=== PATIENT | female | born 1945 | race Caucasian/White ===

== ENCOUNTER 2020-12-28 15:11 | Inpatient (IN) ==
[2020-12-28] MEDS ORDERED: SODIUM CHLORIDE 0.9% 1000ML 1,000 ML IV ONE (15:46)
[2020-12-28] MEDS ORDERED: FAMOTIDINE 20MG IV PUSH 20 MG/5 ML SYR IV STA (15:48)
[2020-12-28] MEDS ORDERED: ACETAMINOPHEN 1,000 MG/100 ML VIAL IV STA (15:48)
[2020-12-28] MEDS ORDERED: ONDANSETRON INJ 2 MG/ML 2 ML VIAL IV STA (15:49)
[2020-12-28] MEDS ORDERED: guaiFENesin 600 MG TABCR PO STA (15:49)
[2020-12-28] MEDS ORDERED: ALBUT/IPRATROP 3MG/0.5MG NEB 3 ML VIAL NEB STA (15:49)
[2020-12-28] MEDS ORDERED: SODIUM CHLORIDE 0.65% NA SOLN 45 ML (OCEAN) ONE (15:52)
[2020-12-28] MEDS ORDERED: dexAMETHasone**PF** 10 MG/ML VIAL IV ONE (15:52)
[2020-12-28] MEDS ORDERED: cefTRIAXone SODIUM 2,000 MG/70 ML BAG IV STA (15:53)
[2020-12-28 16:49] LABS: Alanine Aminotransferase 75 U/L (12-78); Albumin Level 3.3 gm/dl (3.4-5.0); Aspartate Aminotransferase 109 U/L (15-37); BUN Creatinine Ratio 21.1 (10-20); Blood Urea Nitrogen 14 mg/dl (7-18); Calcium 8.6 mg/dl (8.5-10.1); Carbon Dioxide 24 mmol/L (21-32); Chloride 101 mmol/L (98-107); Est GFR (African American) 101.4 ml/min; Est GFR (Non-African American) 87.5 ml/min; Glucose 119 mg/dl (70-99); Lipase 150 U/L (73-393); Potassium 3.1 mmol/L (3.5-5.1); Sodium 134 mmol/L (136-145)
[2020-12-28 16:52] LABS: Albumin Globulin Ratio 0.9 (0.9-2); Alkaline Phosphatase 151 U/L (45-117); Bilirubin Direct 0.4 mg/dl (0-0.2); Bilirubin,Total 0.7 mg/dl (0.2-1); Globulin 3.6 gm/dl (2.5-4.0); Phosphorus 1.8 mg/dl (2.5-4.9); Total Protein 6.9 gm/dl (6.4-8.2); Troponin I < 0.015 ng/ml (0-0.045)
--- NOTE | 2020-12-28 16:52 | XRay Report ---
XR chest 1V portable CLINICAL HISTORY: Atypical chest pain COMPARISON STUDY: No previous studies for comparison. FINDINGS: The cardiac and mediastinal contours are normal. There is no evidence of focal pulmonary co nsolidation. There is no evidence of failure. No pleural effusions are visualized.[ IMPRESSION: No active disease in the chest. ACT 112: Negative or not required by law. Electronically signed by: Peter Mercado M.D. 12/28/2020 4:51 PM
[2020-12-28] MEDS ORDERED: POTASSIUM PHOS 3 MMOL/1 ML INFUSION IV STA (16:59)
[2020-12-28 17:00] LABS: Hematocrit (blood only) 37.8 % (37-47); Hemoglobin 12.9 g/dL (12.0-16.0); Mean Corpuscular Hemoglobin 30.3 pg (25-34); Mean Corpuscular Hgb Conc 34.1 g/dL (32-36); Mean Corpuscular Volume 88.7 fL (80-100); RDW Coefficient of Variation 13.7 % (11.5-14.5); RDW Standard Deviation 44.8 fL (36.4-46.3); Red Blood Count 4.26 M/uL (4.2-5.4); White Blood Count 1.68 K/uL (4.8-10.8)
[2020-12-28 17:06] LABS: INR 1.1 (0.9-1.1); Partial Thromboplastin Ratio 1.3; Partial Thromboplastin Time 34.5 Seconds (21.0-31.0); Prothrombin Time 10.7 Seconds (9.0-12.0)
[2020-12-28] MEDS ORDERED: OPTIRAY 320 100ml IV ONE (17:11)
[2020-12-28] MEDS ORDERED: POTASSIUM PHOSPHATE 6 MMOL in 0.9 % SODIUM CHLORIDE 100 ML IV ONE (17:15)
--- NOTE | 2020-12-28 17:30 | Emergency Department Note ---
Impression & Plan Anaplasmosis, Fever, Thrombocytopenia, Lymphopenia, Hypophosphatemia, Transaminitis, Hypokalemia ED Provider Note NAME: ALEXYS JUAN AGE: 75 SEX: F ARRIVES VIA: Walk-In INFORMANT: Patient, ED PROVIDER(S): Abel Hernandez MD CHIEF COMPLAINT: Cough, fevers, nausea, vomiting, diarrhea. PLAN: Disposition: Admit MEDICAL DECISION MAKING: The patient is a pleasant 75-year-old woman with a past medical history of asthma who presents to the emergency department with fevers that have been ongoing for the past several days despite being on azithromycin prescribed by her PCP in setting of having cough, congestion and body aches ongoing for the past week. She denies any chest pain shortness of breath. She does report nausea, vomiting and diarrhea. Reports having had both series of her Covid vaccine several months ago. She denies any known COVID-19 exposures. On arrival the patient is uncomfortable but no acute distress, febrile to 39.1, heart rate in the 110s and vital signs otherwise stable. She appears clinically dry. She has scant intermittent wheeze and is otherwise clear. Abdomen is mildly distended but soft, and nontender. EKG without overt acute ischemia. Chest x-ray negative for acute cardiopulmonary process. WBC 1.6 with lymphopenia to 0.36. Platelets decreased to 33K. H/H within normal limits. Chemistry without metabolic acidosis. Potassium 3.1 and phosphorus 1.8 with repletion initiated. BUN/creatinine> 20 consistent with patient's clinically dry appearance. Lactic acid 1.5. LFTs are elevated with AST 109. Troponin negative/undetectable. Lipase is not elevated. COVID-19 PCR was negative. Of note, we were contacted by the lab regarding suspicion for anaplasmosis on CBC/smear. Formal Anaplasma smear was ordered and did show "Intracytoplasmic neutrophilic inclusions noted." Pathology consult to follow. CT abdomen pelvis did not demonstrate acute process however note is made of mul tiple cystic hepatic lesions with the largest measuring 13 cm with associated mass-effect. Upon reevaluation the patient did report some improvement with resolution of her cough but still feeling somewhat nauseated. I did review her results with her and her at the bedside. Given she is still uncomfortable and somewhat symptomatic she was in agreement with plan for admission for further management. Patient was initially treated with empiric ceftriaxone to broaden antibiotic coverage given her fever and tachycardia while on azithromycin. However given full smear consistent with anaplasmosis IV doxycycline ordered. Case was discussed with Valery Argueta with Dr. [facility] who will evaluate the patient for admission. Triage Nursing notes reviewed and agree them. Prior medical records reviewed Vital Signs: reviewed and remarkable for fever, tachycardia. Differential diagnosis: Viral syndrome, otitis, pharyngitis, pneumonia, influenza, meningitis, urinary tract infection, sepsis, bacteremia, as well as other pathologies. ER treatment provided: See below. Diagnostics interpreted by me: ECG: Sinus tachycardia, 103 bpm, no ectopy, nonspecific T wave abnormality, no overt ST elevation or depression, QTC 413, QRS 94. Cardiac Monitoring: An order for continuous cardiac monitoring was placed and demonstrated sinus tachycardia, 103 bpm, no ectopy. Laboratory studies: See below Imaging studies: See below Consultation(s): Valery Argueta with Dr. Chidi rodrigues who will evaluate the patient for admission. HPI: The patient is a pleasant 75-year-old woman with a past medical history of asthma who presents to the emergency department with fevers that have been ongoing for the past several days despite being on azithromycin prescribed by her PCP in setting of having cough, congestion and body aches ongoing for the past week. She denies any chest pain shortness of breath. She does report nausea, vomiting and diarrhea. Reports having had both series of her Covid vaccine several months ago. She denies any known COVID-19 exposures. ROS: See above HPI for pertinent positives & negatives. A total of 10 systems reviewed and were otherwise negative. PAST MEDICAL HISTORY:See Below PAST SURGICAL HISTORY:See Below FAMILY HISTORY:See Below SOCIAL HISTORY:See Below HOME MEDICATIONS:See Below ALLERGIES:See Below VITALS:See Below PHYSICAL EXAMINATION: GENERAL: Awake, alert, fatigued-appearing, in no distress HENT: Normocephalic, atraumatic. Oropharynx with dry mucous membranes and otherwise unremarkable. EYES: Normal conjunctiva. Sclera non-icteric. NECK: Supple. No nuchal rigidity. FROM. No JVD. RESPIRATORY: Scant intermittent wheeze and is otherwise clear. CARDIAC: Tachycardic rate, normal rhythm. Extremities warm and well perfused. Pulses equal. ABDOMEN: Mildly distended but soft. No tenderness to palpation. No rebound or guarding. No masses. RECTAL: Deferred. MUSCULOSKELETAL: Chest examination reveals no tenderness. The back is symmetrical on inspection without obvious abnormality. There is no CVA tenderness to palpation. No joint edema. LOWER EXTREMITIES: Calves are equal size bilaterally and non-tender. No edema. No discoloration. NEURO: Normal sensorium. No sensory or motor deficits noted. SKIN: No rash or jaundice noted. Abel Hernandez MD Past Med/Surg History Medical History Asthma Surgical History History of hysterectomy Family History Mother Colorectal cancer Father Heart disease Social History Smoking Status: Never smoker Hx Alcohol Use: No Hx Substance Use: No Preferred Language: Faroese Communication Ability: Effective Electromechanical Assembler Required: No Beliefs That Will Affect Care: None Current Living Situation: Spouse Feels Safe at Home: Yes Safety Concerns: Feels Safe At This Time Assistive Devices: Glasses Allergies Allergies Allergy/AdvReac Type Severity Reaction Status Date / Time No Known Allergies Allergy Unknown Verified 08/13/03 16:41 CAT GUT Allergy Mild Uncoded 08/03/03 15:33 Home Meds Home Medications Medication Instructions Recorded Confirmed albuterol sulfate 2 inh INHALATION QID PRN 12/28/20 12/28/20 azithromycin 250 mg PO DAILY 12/28/20 12/28/20 calcium carbonate-vitamin D3 2 tab PO DAILY 12/28/20 12/28/20 [Calcium + D] fluticasone propionate 2 spray INTRANASAL DAILY 12/28/20 12/28/20 fluticasone propionate [Flovent 2 inh INHALATION BID 12/28/20 12/28/20 HFA] Results & Data (ED) Vital Signs Vital Signs - 24 hr 12/28/20 15:16 12/28/20 16:28 12/28/20 16:30 Temperature 39.1 C H Temperature Source Temporal Artery Scan Pulse Rate 118 H Pulse Rate [Right Finger] 95 H Pulse Rhythm Regular Pulse Strength Normal Respiratory Rate 22 20 Respiratory Effort / Characteristics Non-Labored Spontaneous Respiratory Depth Normal Respiratory Pattern Regular Blood Pressure 109/75 Blood Pressure [Left Arm] Blood Pressure Mean 86 Blood Pressure Mean [Left Arm] Blood Pressure Position Sitting Pulse Oximetry 94 95 97 Oxygen Delivery Method Room Air Room Air Room Air Sepsis Recent Fever Within 48 Hours Yes Sepsis New/Unexplained Change in Mental Status No Sepsis Action Taken by Nursing Physician Notified 12/28/20 17:21 12/28/20 18:41 Temperature 36.9 C Temperature Source Oral Pulse Rate Pulse Rate [Right Finger] 89 Pulse Rhythm Pulse Strength Respiratory Rate 18 Respiratory Effort / Characteristics Respiratory Depth Respiratory Pattern Blood Pressure Blood Pressure [Left Arm] 120/61 Blood Pressure Mean Blood Pressure Mean [Left Arm] 80 Blood Pressure Position Pulse Oximetry 94 Oxygen Delivery Method Room Air Sepsis Recent Fever Within 48 Hours Sepsis New/Unexplained Change in Mental Status Sepsis Action Taken by Nursing Laboratory Data Attestation: I reviewed the patient's lab results. Result diagrams: 12/28/20 16:18 12/28/20 16:18 Lab Results 12/28/20 12/28/20 12/28/20 Range/Units 16:00 16:00 16:18 WBC 1.68 L (4.8-10.8) K/uL RBC 4.26 (4.2-5.4) M/uL Hgb 12.9 (12.0-16.0) g/dL Hct 37.8 (37-47) % MCV 88.7 (80-100) fL MCH 30.3 (25-34) pg MCHC 34.1 (32-36) g/dL RDW Std Deviation 44.8 (36.4-46.3) fL RDW Coeff of Inna 13.7 (11.5-14.5) % Plt Count 33 L (130-400) K/uL MPV 13.4 H (7.4-10.4) fL Immature Gran % (Auto) 0.6 % Neut % (Auto) 69.7 % Lymph % (Auto) 21.4 % Stanley % (Auto) 7.1 % Eos % (Auto) 0.6 % Baso % (Auto) 0.6 % Neut # (Auto) 1.17 L (1.4-6.5) K/uL Lymph # (Auto) 0.36 L (1.2-3.4) K/uL Stanley # (Auto) 0.12 (0.11-0.59) K/uL Eos # (Auto) 0.01 (0-0.5) K/uL Baso # (Auto) 0.01 (0-0.2) K/uL Immature Gran # (Auto) 0.01 (0.00-0.02) K/uL Toxic Vacuolation 1+ Dohle Bodies 1+ Platelet Estimate SIGNIFIC DECREASED (Normal) Giant Platelets 3+ PT (9.0-12.0) Seconds INR (0.9-1.1) APTT (21.0-31.0) Seconds PTT Ratio Sodium (136-145) mmol/L Potassium (3.5-5.1) mmol/L Chloride (98-107) mmol/L Carbon Dioxide (21-32) mmol/L Anion Gap (3-11) BUN (7-18) mg/dl Creatinine (0.6-1.2) mg/dl Est Cr Clr Drug Dosing Est GFR ( Amer) ml/min Est GFR (Non-Af Amer) ml/min BUN/Creatinine Ratio (10-20) Glucose (70-99) mg/dl Lactate (0.4-2.0) mmol/L Calcium (8.5-10.1) mg/dl Phosphorus (2.5-4.9) mg/dl Magnesium (1.8-2.4) mg/dl Total Bilirubin (0.2-1) mg/dl Direct Bilirubin (0-0.2) mg/dl AST (15-37) U/L ALT (12-78) U/L Alkaline Phosphatase (45-117) U/L Troponin I (0-0.045) ng/ml Total Protein (6.4-8.2) gm/dl Albumin (3.4-5.0) gm/dl Globulin (2.5-4.0) gm/dl Albumin/Globulin Ratio (0.9-2) Lipase (73-393) U/L Anaplasma Smear See Comment A COVID-19 Eval Order Covid19 at [facility] SARS-CoV-2 (PCR) NEGATIVE (Negative) 12/28/20 12/28/20 12/28/20 Range/Units 16:18 16:18 16:18 WBC (4.8-10.8) K/uL RBC (4.2-5.4) M/uL Hgb (12.0-16.0) g/dL Hct (37-47) % MCV (80-100) fL MCH (25-34) pg MCHC (32-36) g/dL RDW Std Deviation (36.4-46.3) fL RDW Coeff of Inna (11.5-14.5) % Plt Count (130-400) K/uL MPV (7.4-10.4) fL Immature Gran % (Auto) % Neut % (Auto) % Lymph % (Auto) % Stanley % (Auto) % Eos % (Auto) % Baso % (Auto) % Neut # (Auto) (1.4-6.5) K/uL Lymph # (Auto) (1.2-3.4) K/uL Stanley # (Auto) (0.11-0.59) K/uL Eos # (Auto) (0-0.5) K/uL Baso # (Auto) (0-0.2) K/uL Immature Gran # (Auto) (0.00-0.02) K/uL Toxic Vacuolation Dohle Bodies Platelet Estimate (Normal) Giant Platelets PT 10.7 (9.0-12.0) Seconds INR 1.1 (0.9-1.1) APTT 34.5 H (21.0-31.0) Seconds PTT Ratio 1.3 Sodium 134 L (136-145) mmol/L Potassium 3.1 L (3.5-5.1) mmol/L Chloride 101 (98-107) mmol/L Carbon Dioxide 24 (21-32) mmol/L Anion Gap 9.0 (3-11) BUN 14 (7-18) mg/dl Creatinine 0.65 (0.6-1.2) mg/dl Est Cr Clr Drug Dosing Not Reportable Est GFR ( Amer) 101.4 ml/min Est GFR (Non-Af Amer) 87.5 ml/min BUN/Creatinine Ratio 21.1 H (10-20) Glucose 119 H (70-99) mg/dl Lactate 1.5 (0.4-2.0) mmol/L Calcium 8.6 (8.5-10.1) mg/dl Phosphorus 1.8 L (2.5-4.9) mg/dl Magnesium 2.0 (1.8-2.4) mg/dl Total Bilirubin 0.7 (0.2-1) mg/dl Direct Bilirubin 0.4 H (0-0.2) mg/dl AST 109 H (15-37) U/L ALT 75 (12-78) U/L Alkaline Phosphatase 151 H (45-117) U/L Troponin I < 0.015 (0-0.045) ng/ml Total Protein 6.9 (6.4-8.2) gm/dl Albumin 3.3 L (3.4-5.0) gm/dl Globulin 3.6 (2.5-4.0) gm/dl Albumin/Globulin Ratio 0.9 (0.9-2) Lipase 150 (73-393) U/L Anaplasma Smear COVID-19 Eval Order SARS-CoV-2 (PCR) (Negative) Administered Medications Sodium Chloride (Nss 1000ml) 1,000 mls @ 125 mls/hr IV .Q8H JING Stop: 01/27/21 21:14 Last Admin: 12/28/20 21:23 Dose: 125 mls/hr Documented by: [id number] Discontinued Medications Albuterol (Albut/Ipratrop 3mg/0.5mg Neb 3 Ml Vial) 3 ml NEB NOW STA Stop: 12/28/20 15:50 Last Admin: 12/28/20 16:27 Dose: 3 ml Documented by: [id number] Dexamethasone Sodium Phosphate (DexamethasonePf 10 Mg/Ml Vial) 10 mg IV NOW ONE Stop: 12/28/20 15:53 Last Admin: 12/28/20 16:15 Dose: 10 mg Documented by: [id number] Guaifenesin (Guaifenesin 600 Mg Tabcr) 600 mg PO NOW STA Stop: 12/28/20 15:50 Last Admin: 12/28/20 16:14 Dose: 600 mg Documented by: [id number] Sodium Chloride (Nss 1000ml) 1,000 mls @ 999 mls/hr IV .Q1H1M ONE Stop: 12/28/20 16:46 Last Infusion: 12/28/20 17:16 Dose: 0 mls/hr Documented by: [id number] Admin: 12/28/20 16:13 Dose: 999 mls/hr Documented by: [id number] Acetaminophen (Ofirmev) 1,000 mg in 100 mls @ 400 mls/hr IV NOW STA Stop: 12/28/20 16:02 Last Infusion: 12/28/20 16:56 Dose: 0 mls/hr Documented by: [id number] Admin: 12/28/20 16:14 Dose: 400 mls/hr Documented by: [id number] Famotidine (Pepcid 20mg Iv Push) 20 mg in 5 mls @ 2.5 mls/min IV NOW STA Stop: 12/28/20 15:49 Last Admin: 12/28/20 16:15 Dose: 2.5 mls/min Documented by: [id number] Ceftriaxone Sodium (Rocephin) 2,000 mg in 70 mls @ 140 mls/hr IV NOW STA Stop: 12/28/20 16:22 Last Infusion: 12/28/20 16:56 Dose: 0 mls/hr Documented by: [id number] Admin: 12/28/20 16:26 Dose: 140 mls/hr Documented by: [id number] Potassium Phosphate 6 mmol/ (Sodium Chloride) 102 mls @ 102 mls/hr IV ONE ONE Stop: 12/28/20 18:14 Last Infusion: 12/28/20 19:23 Dose: 0 mls/hr Documented by: [id number] Admin: 12/28/20 17:18 Dose: 102 mls/hr Documented by: [id number] Doxycycline Hyclate 100 mg/ (Dextrose) 110 mls @ 50 mls/hr IV NOW STA Stop: 12/28/20 19:42 Last Infusion: 12/28/20 21:04 Dose: 0 mls/hr Documented by: [id number] Admin: 12/28/20 18:34 Dose: 50 mls/hr Documented by: [id number] Prochlorperazine (Compazine) 1 mls @ 1 mls/min IV ONE ONE Stop: 12/28/20 18:41 Last Admin: 12/28/20 18:54 Dose: 1 mls/min Documented by: [id number] Ioversol (Optiray 320 100ml) 94 ml IV ONCE ONE Stop: 12/28/20 17:12 Last Admin: 12/28/20 17:11 Dose: 94 ml Documented by: [id number] Ondansetron HCl (Ondansetron Inj 2 Mg/Ml 2 Ml Vial) 4 mg IV NOW STA Stop: 12/28/20 15:50 Last Admin: 12/28/20 16:14 Dose: 4 mg Documented by: [id number] Potassium Chloride (Potassium Chloride Crtab 20 Meq Tabcr) 40 meq PO NOW STA Stop: 12/28/20 21:04 Last Admin: 12/28/20 21:34 Dose: 40 meq Documented by: [id number] Sodium Chloride (Sodium Chloride 0.65% Na Soln 45 Ml ([place])) 2 sprays NA NOW O NE Stop: 12/28/20 15:53 Last Admin: 12/28/20 16:14 Dose: 2 sprays Documented by: [id number] Imaging Data Radiologist's Impression: Chest X-Ray 12/28/20 15:46 XR chest 1V portable CLINICAL HISTORY: Atypical chest pain COMPARISON STUDY: No previous studies for comparison. FINDINGS: The cardiac and mediastinal contours are normal. There is no evidence of focal pulmonary consolidation. There is no evidence of failure. No pleural effusions are visualized.[ IMPRESSION: No active disease in the chest. ACT 112: Negative or not required by law. Electronically signed by: Peter Mercado M.D. 12/28/2020 4:51 PM Abdomen/Pelvis CT 12/28/20 15:51 CT abd pelvis IV con only CLINICAL HISTORY: Fever, abdominal pain, nausea, vomiting, diarrhea. COMPARISON STUDY: None. TECHNIQUE: The patient was scanned in a dynamic helical fashion during intraven ous administration of 94 cc of Optiray 320 A dose lowering technique was utilized adhering to the principles of ALARA. CT DOSE: 282.84 mGy.cm FINDINGS: Lower chest: The heart is normal in size and configuration, without pericardial effusion. The lung bases and pleural spaces are clear. Liver: There is a 13.3 mm cystic lesion within the left hepatic lobe, there are additional scattered hepatic hypodensities likely representing cysts. There is left lobe of the area ductal dilatation. The hepatic and portal veins appear patent. There is displacement of the hepatic and portal vessels. Gallbladder: Unremarkable. Spleen: Top normal in size Pancreas: Unremarkable. Adrenal glands: Unremarkable. Kidneys: There is symmetric renal cortical enhancement. The kidneys are normal in size without hydronephrosis. Bowel: There are no transition zones to indicate bowel obstruction. There is extensive sigmoid diverticulosis. There is mild wall thickening likely secondary to peridiverticular inflammatory change. There is no convincing evidence of acute diverticulitis. The appendix is not visualized with certainty. There are scattered colonic air-fluid levels. Peritoneum: There is a small amount of free pelvic fluid. There is no free intraperitoneal air. Vasculature: The abdominal aorta is normal in course and caliber. Adenopathy: None. Pelvic viscera: The uterus appears surgically absent Skeletal structures: No destructive osseous lesions are seen. IMPRESSION: 1. No evidence of bowel obstruction. No evidence of free air. 2. Extensive sigmoid diverticulosis. There is no convincing evidence of acute diverticulitis. 3. Multiple cystic hepatic lesions including a 13 cm lesion within the left hepatic lobe. Mass effect from this lesion is felt to result in left hepatic lobe biliary ductal dilatation. In addition there is an unusual hepatic venous pattern, likely secondary to mass effect on the hepatic veins 4. Small amount of free pelvic fluid ACT 112: Negative or not required by law. Electronically signed by: Peter Mercado M.D. 12/28/2020 5:27 PM Discharge Plan Visit Data Chief Complaint: Weakness Stated Complaint: WEAK,CANT EAT,VOMITING.DIARRHEA ED Provider: Abel Hernandez Discharge Problem: Anaplasmosis, Fever, Thrombocytopenia, Lymphopenia, Hypophosphatemia, Transaminitis, Hypokalemia Patient Disposition: Admitted As Inpatient Discharge Instructions Interventions: ED Discharge Assessment Last Done: 12/28/20 20:08 Discharge Problem: Fever Qualifiers: Fever type: unspecified Qualified Code(s): R50.9 - Fever, unspecified
[2020-12-28] MEDS ORDERED: DOXYCYCLINE HYCLATE 100 MG in DEXTROSE 5% 100 ML IV STA (17:31)
[2020-12-28 17:41] LABS: Mean Platelet Volume 13.4 fL (7.4-10.4); Platelet Count 33 K/uL (130-400)
[2020-12-28 17:42] LABS: Basophils # (auto) 0.01 K/uL (0-0.2); Basophils % (auto) 0.6 %; Dohle Bodies 1+; Eosinophils # (auto) 0.01 K/uL (0-0.5); Eosinophils % (auto) 0.6 %; Giant Platelets 3+; Immature Granulocytes # (auto) 0.01 K/uL (0.00-0.02); Immature Granulocytes % (auto) 0.6 %; Lymphocytes # (auto) 0.36 K/uL (1.2-3.4); Lymphocytes % (auto) 21.4 %; Monocytes # (auto) 0.12 K/uL (0.11-0.59); Monocytes % (auto) 7.1 %; Neutrophils # (auto) 1.17 K/uL (1.4-6.5); Neutrophils % (auto) 69.7 %; Platelet Estimate SIGNIFIC DECREASED (Normal); Toxic Vacuolation 1+
[2020-12-28] MEDS ORDERED: PROCHLORPERAZINE 1 ML IV ONE (18:40)
--- NOTE | 2020-12-28 19:25 | History & Physical Report ---
Date of Service December 28, 2020 Assessment & Plan (1) Anaplasmosis: -Admit to [facility] -Patient presenting from home with reports of generalized weakness and illness -In the ED, Anaplasma smear positive -Labs consistent with Anaplasma infection w/ leukopenia, thrombocytopenia, elevated LFTs -Doxycycline, supportive care (2) Hepatic cyst: -CT ABD/pelvis shows multiple cystic hepatic lesions including a 13 cm lesion within the left hepatic lobe -Consider nonurgent GI consult if patient still hospitalized on Wednesday, otherwise outpatient follow-up (3) Hypokalemia: (4) Hypophosphatemia: -K+ 3.1, Phos 1.8 -Likely due to poor p.o. intake and GI loss with vomiting and diarrhea -Replace, follow electrolytes (5) Asthma: -No signs of acute exacerbation, continue home inhalers (6) DVT prophylaxis: -SCDs due to thrombocytopenia History of Present Illness Chief Complaint: Generalized weakness Primary Care Provider: Bryan Davis MD 75-year-old female with PMH asthma, and the problems listed below who presents to the ED for evaluation of generalized weakness and generally not feeling well. Patient reports that about 1 week ago, she developed URI type symptoms. She was placed on azithromycin by her PCP. Shortly after, patient reports she developed nausea and had one episode of vomiting and some diarrhea.. She has had a very poor appetite. She reports feeling generally weak. Has been running low-grade fevers of around 100 F. Patient reports being treated for Lyme disease 10/2020 with a 3-week course of doxycycline. She reports that since that time, she has removed 3 ticks from herself, last 1 being about 2 weeks ago. Patient reports she spends a lot of time outdoors and in the [place]. Patient denies abdominal pain. No chest pain or shortness of breath. Denies lightheadedness, dizziness, diaphoresis, syncopal events. No urinary symptoms. In the ED, patient tested positive for anaplasmosis. Labs show WBC 1.6K, platelet 33K, AST 109, alk phos 151. K+ 3.1, phosphorus 1.8. Patient was given IV Tylenol, nebulizer treatment, IV ceftriaxone, IV dexamethasone, IV doxycycline, IV famotidine, guaifenesin, IV Zofran, potassium phosphate replacement, IV prochlorperazine, IVF. Allergies Allergy/AdvReac Type Severity Reaction Status Date / Time No Known Allergies Allergy Unknown Verified 08/13/03 16:41 CAT GUT Allergy Mild Uncoded 08/03/03 15:33 Home Medications Medication Instructions Recorded Confirmed Type albuterol sulfate 2 inh INHALATION QID PRN 12/28/20 12/28/20 History azithromycin 250 mg PO DAILY 12/28/20 12/28/20 History calcium carbonate-vitamin D3 2 tab PO DAILY 12/28/20 12/28/20 History [Calcium + D] fluticasone propionate 2 spray INTRANASAL DAILY 12/28/20 12/28/20 History fluticasone propionate [Flovent 2 inh INHALATION BID 12/28/20 12/28/20 History HFA] Past Med/Surg History Medical History Asthma Surgical History History of hysterectomy Family History Mother Colorectal cancer Father Heart disease Social History Smoking Status: Never smoker Hx Alcohol Use: No Hx Substance Use: No Preferred Language: Estonian Communication Ability: Effective Dental Equipment Repairer Required: No Beliefs That Will Affect Care: None Current Living Situation: Spouse Feels Safe at Home: Yes Safety Concerns: Feels Safe At This Time Assistive Devices: Glasses Review of Systems Review of Systems: ROS per HPI, all other systems reviewed and negative Physical Exam Constitutional: WD/WN, vitals as above Eyes: PERRL, conjunctivae normal, anicteric sclerae ENMT: external ear and nose normal, oropharynx normal Respiratory: normal respiratory effort, lungs clear to auscultation Cardiovascular: Rate/Rhythm: regular rate and regular rhythm Vessels: normal peripheral pulses Extremities: no edema Gastrointestinal (Abdomen): normal bowel sounds, soft, nontender, no hepatosplenomegaly Musculoskeletal: no cyanosis or clubbing, extremities motor strength 5/5 Skin: no rashes, warm and dry Neurologic: PERRL, EOMI, accommodation nl, no face palsy, no dysarthria Psychiatric: A+Ox3, euthymic affect Results & Data Results & Data ([place]) Vital Signs (Past 12 Hours) Vital Signs Temp Pulse Pulse Resp BP BP Pulse Ox 12/28/20 18:41 36.9 C 12/28/20 17:21 89 18 120/61 94 12/28/20 16:30 97 12/28/20 16:28 95 H 20 95 12/28/20 15:16 39.1 C H 118 H 22 109/75 94 Laboratory Results Short CBC 12/28/20 Range/Units 16:18 WBC 1.68 L (4.8-10.8) K/uL Hgb 12.9 (12.0-16.0) g/dL Hct 37.8 (37-47) % Plt Count 33 L (130-400) K/uL BMP 12/28/20 16:18 Sodium 134 L Potassium 3.1 L Chloride 101 Carbon Dioxide 24 BUN 14 Creatinine 0.65 Glucose 119 H Calcium 8.6 Cardiac Enzymes 12/28/20 Range/Units 16:18 Troponin I < 0.015 (0-0.045) ng/ml Liver Function 12/28/20 Range/Units 16:18 Total Bilirubin 0.7 (0.2-1) mg/dl Direct Bilirubin 0.4 H (0-0.2) mg/dl AST 109 H (15-37) U/L ALT 75 (12-78) U/L Alkaline Phosphatase 151 H (45-117) U/L Albumin 3.3 L (3.4-5.0) gm/dl Diagnostic Findings Chest X-Ray 12/28/20 15:46 XR chest 1V portable CLINICAL HISTORY: Atypical chest pain COMPARISON STUDY: No previous studies for comparison. FINDINGS: The cardiac and mediastinal contours are normal. There is no evidence of focal pulmonary consolidation. There is no evidence of failure. No pleural effusions are visualized.[ IMPRESSION: No active disease in the chest. ACT 112: Negative or not required by law. Electronically signed by: Peter Mercado M.D. 12/28/2020 4:51 PM Abdomen/Pelvis CT 12/28/20 15:51 CT abd pelvis IV con only CLINICAL HISTORY: Fever, abdominal pain, nausea, vomiting, diarrhea. COMPARISON STUDY: None. TECHNIQUE: The patient was scanned in a dynamic helical fashion during intravenous administration of 94 cc of Optiray 320 A dose lowering technique was utilized adhering to the principles of ALARA. CT DOSE: 282.84 mGy.cm FINDINGS: Lower chest: The heart is normal in size and configuration, without pericardial effusion. The lung bases and pleural spaces are clear. Liver: There is a 13.3 mm cystic lesion within the left hepatic lobe, there are additional scattered hepatic hypodensities likely representing cysts. There is left lobe of the area ductal dilatation. The hepatic and portal veins appear patent. There is displacement of the hepatic and portal vessels. Gallbladder: Unremarkable. Spleen: Top normal in size Pancreas: Unremarkable. Adrenal glands: Unremarkable. Kidneys: There is symmetric renal cortical enhancement. The kidneys are normal in size without hydronephrosis. Bowel: There are no transition zones to indicate bowel obstruction. There is extensive sigmoid diverticulosis. There is mild wall thickening likely secondary to peridiverticular inflammatory change. There is no convincing evidence of acute diverticulitis. The appendix is not visualized with certainty. There are scattered colonic air-fluid levels. Peritoneum: There is a small amount of free pelvic fluid. There is no free intraperitoneal air. Vasculature: The abdominal aorta is normal in course and caliber. Adenopathy: None. Pelvic viscera: The uterus appears surgically absent Skeletal structures: No destructive osseous lesions are seen. IMPRESSION: 1. No evidence of bowel obstruction. No evidence of free air. 2. Extensive sigmoid diverticulosis. There is no convincing evidence of acute diverticulitis. 3. Multiple cystic hepatic lesions including a 13 cm lesion within the left hepatic lobe. Mass effect from this lesion is felt to result in left hepatic lobe biliary ductal dilatation. In addition there is an unusual hepatic venous pattern, likely secondary to mass effect on the hepatic veins 4. Small amount of free pelvic fluid ACT 112: Negative or not required by law. Electronically signed by: Peter Mercado M.D. 12/28/2020 5:27 PM Code Status & VTE Plan Code Status Patient is a full code as per my discussion with her. VTE Prophylaxis Plan VTE Prophylaxis will be ordered: Yes Supervising Physician Co-Signing Physician Notes Attending note : pt seen and examined , care co-ordinated with Anel SOLOMON 75 yo F admitted with fever , chills , poor PO intake hx of Tick bite positive for anaplasma started on PO doxy low K /Low phos : due to poor PO intake , N/V /diarrhea replaced monitor lytes incidental finding of hepatic cysts : out pt GI F/u please refer to further documentation by Anel Vásquez for discussion of other medical issues Joan Murillo MD
[2020-12-28] MEDS ORDERED: POTASSIUM CHLORIDE CRTAB 20 MEQ TABCR PO STA (21:03)
[2020-12-28] MEDS: SODIUM CHLORIDE 0.9% 1000ML 1,000 ML IV SCH (21:23)
[2020-12-28 23:29] LABS: Appearance Urine Clear (Clear); Bacteria Urine Automated Negative (Negative); Bilirubin Urine Negative (Negative); Blood Urine Negative (Negative); Color Urine Yellow; Glucose Urine UA Trace (Negative); Ketones Urine Negative (Negative); Leukocyte Esterase Urine Negative (Negative); Nitrite Urine Negative (Negative); Protein Urine 1+ (Negative); Specific Gravity Urine 1.029 (1.000-1.030); Urobilinogen Urine Negative (Negative); pH Urine 5.5 (4.5-7.5)
[2020-12-29] MEDS: SODIUM CHLORIDE 0.9% 1000ML 1,000 ML IV SCH ×2 (05:30→14:21)
[2020-12-29 07:21] LABS: Albumin Globulin Ratio 0.8 (0.9-2); Albumin Level 2.6 gm/dl (3.4-5.0); BUN Creatinine Ratio 22.8 (10-20); Bilirubin,Total 0.6 mg/dl (0.2-1); Calcium 7.7 mg/dl (8.5-10.1); Creatinine Clr Calc Pharmacy 77.5 ml/min; Est GFR (African American) 107.1 ml/min; Est GFR (Non-African American) 92.4 ml/min; Globulin 3.2 gm/dl (2.5-4.0); Phosphorus 1.8 mg/dl (2.5-4.9); Potassium 3.7 mmol/L (3.5-5.1); Total Protein 5.8 gm/dl (6.4-8.2)
--- NOTE | 2020-12-29 09:39 | Electrocardiogram Report ---
Test Reason : Blood Pressure : / mmHG Vent. Rate : 103 BPM Atrial Rate : 103 BPM P-R Int : 170 ms QRS Dur : 094 ms QT Int : 316 ms P-R-T Axes : 051 082 030 degrees QTc Int : 413 ms Sinus tachycardia Nonspecific T wave abnormality Abnormal ECG When compared with ECG of 03-AUG-2003 14:22, Vent. rate has increased BY 36 BPM Nonspecific T wave abnormality is now present Confirmed by Donnell Capone ([id number]) on 12/29/2020 9:38:41 AM Referred By: REFERRED SELF Confirmed By:Donnell Capone
[2020-12-29] MEDS: DOXYCYCLINE HYCLATE 100 MG CAP PO SCH ×2 (09:44→20:31)
[2020-12-29] MEDS: FLUTICASONE FUROATE 200MCG 14 PUFFS/INHALER INH SCH (09:44)
--- NOTE | 2020-12-29 17:59 | Hospitalist Progress Note ---
Date of Service December 29, 2020 Assessment & Plan (1) Anaplasmosis: -Patient presentedfrom home with reports of generalized weakness and illness -In the ED, Anaplasma smear positive -Labs consistent with Anaplasma infection w/ leukopenia, thrombocytopenia, elevated LFTs -continued with PO doxycycline , supportive care with Iv fluids clinically much improved no fever or chills (2) Hepatic cyst: -CT ABD/pelvis shows multiple cystic hepatic lesions including a 13 cm lesion within the left hepatic lobe incidental finding , GI consult (3) Hypokalemia: (4) Hypophosphatemia: -Likely due to poor p.o. intake and GI loss with vomiting and diarrhea GI symptoms has resolved , tolerating diet , no diarrhea diet advanced to solid -Low Phos ; resplaced (5) Asthma: -No signs of acute exacerbation, continue home inhalers (6) DVT prophylaxis: -SCDs due to thrombocytopenia Disposition : anticipated to be discharged home in next 24-48 hrs Admission and Anticipated Discharge Date Admission Date: December 28, 2020 Subjective feels much better today no headache , no fever or sob abdominal pain ,nausea , vomiting has resolved no diarrhea today tolerating clears , willing to try solid food Review of Systems Review of Systems: All systems reviewed & are unremarkable except as noted in Subjective Physical Exam Physical Exam: Physical exam: General: No acute distress, alert awake oriented x3 HEENT: PERRLA, EOMI, Heart: Regular S1-S2, no carotid bruit, no JVD, no lower extremity edema Lungs: Clear to auscultate, no wheeze or rales Abdomen: Soft nontender, no organomegaly Extremity: No cyanosis, no deformity, normal strength 5 out of 5 with upper and lower Neuro: No focal neurological deficit normal speech, normal visual field, Motor strength : normal both upper and lower extremity, sensation intact Psych: Alert awake oriented x3, normal affect Results & Data Results & Data ([facility]) Vital Signs (Past 12 Hours) Vital Signs Temp Pulse Resp BP Pulse Ox 12/29/20 14:39 36.4 C L 58 L 16 123/73 95 12/29/20 07:27 36.4 C L 67 16 129/69 95
[2020-12-29] MEDS ORDERED: POTASSIUM PHOS 3 MMOL/1 ML INFUSION IV STA (18:00)
[2020-12-29] MEDS ORDERED: POTASSIUM PHOSPHATE 6 MMOL in 0.9 % SODIUM CHLORIDE 100 ML IV ONE (18:30)
[2020-12-30] MEDS: FLUTICASONE FUROATE 200MCG 14 PUFFS/INHALER INH SCH (08:38)
[2020-12-30] MEDS: DOXYCYCLINE HYCLATE 100 MG CAP PO SCH (08:38)
--- NOTE | 2020-12-30 10:17 | Gastrointestinal Consultation ---
Date of Consultation December 30, 2020 Assessment & Plan (1) Hepatic cyst: She has multiple hepatic cysts, the largest is 13cm size. Not likely related to the anaplasmosis. Liver synthetic function is preserved. Recommend avoiding trauma to the abdomen as a ruptured cyst could create an urgent problem. Recommend repeat OP imaging of the liver in appox 6m to establish stability. GI will sign off. Please notify us if new/worsening GI issues. Present on Admission?: Yes Supervising Physician Co-Signing Physician Notes I have personally seen and examined the patient with NEHA Sethi. Her note reflects my exam and findings. I agree with her impression and plan. CT reviewed with radiology. Cyst appears simple and chronic which is not typical for infection. It appears to be an incidental finding. Recommend repeat imaging in 6 months to confirm stability of size. Andrea Laird M.D. History of Present Illness Reason for Consultation: Hepatic cysts, biliary ductal dilation Requesting Physician: Dr. Murillo Attending Physician: Joan Murillo MD History of Present Illness Ms. Laly Vidales is a 75 yr old female pt of Dr. Davis who experienced a tic bit 2 wks ago, presented to the ED for fever, extreme fatigue, mild cough and is being tx for anaplasmosis. Imaging is consistent with multiple hepatic cysts, largest 13 cm which is located in the left lobe causing some compression of the left hepatic duct. The pt denies any jaundice, icterus, pruritus, excessive bleeding/bruising or any abdominal pain. No nausea, vomiting or diarrhea (except one episode of diarrhea after taking zithromax last week). T bili has been normal but AST 136, ALT 76, Alk Phos 82 and lipase 80. INR is normal. She is awake, alert, oriented and reports feeling much better since receiving IV antibiotics. Allergies Allergy/AdvReac Type Severity Reaction Status Date / Time No Known Allergies Allergy Unknown Verified 08/13/03 16:41 CAT GUT Allergy Mild Uncoded 08/03/03 15:33 Home Medications Medication Instructions Recorded Confirmed Type albuterol sulfate 2 inh INHALATION QID PRN 12/28/20 12/28/20 History azithromycin 250 mg PO DAILY 12/28/20 12/28/20 History calcium carbonate-vitamin D3 2 tab PO DAILY 12/28/20 12/28/20 History [Calcium + D] fluticasone propionate 2 spray INTRANASAL DAILY 12/28/20 12/28/20 History fluticasone propionate [Flovent 2 inh INHALATION BID 12/28/20 12/28/20 History HFA] doxycycline hyclate 100 mg PO BID 10 Days #20 cap 12/30/20 Rx Patient History Medical History Asthma Surgical History History of hysterectomy Family History Mother Colorectal cancer Father Heart disease Social History Smoking Status: Never smoker Hx Alcohol Use: No Hx Substance Use: No Preferred Language: Persian Communication Ability: Effective Air Quality Specialist Required: No Beliefs That Will Affect Care: None Current Living Situation: Spouse Feels Safe at Home: Yes Safety Concerns: Feels Safe At This Time Assistive Devices: Glasses Review of Systems Review of Systems: ROS: Gen: +weakness, + fevers both resolved; No weight loss Eyes: No eye redness, or pain, no recent vision changes Resp: No SOB, + mild cough Cardio: No palpitations/irregular beats, no chest pain GI: No abdominal pain, no nausea/vomiting : Denies pain on urination Skin: No jaundice, itching or new rashes Physical Exam Constitutional: WD/WN, vitals as above Eyes: PERRL, conjunctivae normal, anicteric sclerae ENMT: external ear and nose normal, oropharynx normal Neck: trachea midline, no thyromegaly Respiratory: normal respiratory effort, lungs clear to auscultation Cardiovascular: RRR, no murmur, no edema Gastrointestinal (Abdomen): Inspection/Auscultation: abdomen normal to inspection; abdomen not distended Percussion/Palpation: + hepatomegaly (the liver is slightly enlarged on palpation and is non tender); abdomen nontender Skin: no rashes, warm and dry Neurologic: PERRL, EOMI, accommodation nl, no face palsy, no dysarthria Psychiatric: A+Ox3, euthymic affect Lymphatic: no cervical or axillary lymphadenopathy Results & Data ([facility]) Vital Signs (Past 12 Hours) Vital Signs Temp Pulse Resp BP Pulse Ox 12/30/20 08:46 36.5 C 63 16 123/66 97 12/29/20 22:50 36.4 C L 51 L 18 111/67 94 Laboratory Results Labs two days ago with WBC 1.6, Plts 33 LFT yesterday with mildy elevated AST, ALT, Alk Phos - see HPI. Diagnostic Findings CT with IV contrast on 12/28/20: 1. No evidence of bowel obstruction. No evidence of free air. 2. Extensive sigmoid diverticulosis. There is no convincing evidence of acute diverticulitis. 3. Multiple cystic hepatic lesions including a 13 cm lesion within the left hepatic lobe. Mass effect from this lesion is felt to result in left hepatic lobe biliary ductal dilatation. In addition there is an unusual hepatic venous pattern, likely secondary to mass effect on the hepatic veins 4. Small amount of free pelvic fluid
[2020-12-30 13:06] LABS: Anaplasmosis Smear(Rpt to DOH) Pos for Anaplasma
--- NOTE | 2020-12-30 15:24 | Discharge Summary ---
Date of Service December 30, 2020 Admission HPI Per Admitting Provider 75-year-old female with PMH asthma, and the problems listed below who presents to the ED for evaluation of generalized weakness and generally not feeling well. Patient reports that about 1 week ago, she developed URI type symptoms. She was placed on azithromycin by her PCP. Shortly after, patient reports she developed nausea and had one episode of vomiting and some diarrhea.. She has had a very poor appetite. She reports feeling generally weak. Has been running low-grade fevers of around 100 F. Patient reports being treated for Lyme disease 10/2020 with a 3-week course of doxycycline. She reports that since that time, she has removed 3 ticks from herself, last 1 being about 2 weeks ago. Patient reports she spends a lot of time outdoors and in [place]. Patient denies abdominal pain. No chest pain or shortness of breath. Denies lightheadedness, dizziness, diaphoresis, syncopal events. No urinary symptoms. In the ED, patient tested positive for anaplasmosis. Labs show WBC 1.6K, platelet 33K, AST 109, alk phos 151. K+ 3.1, phosphorus 1.8. Patient was given IV Tylenol, nebulizer treatment, IV ceftriaxone, IV dexamethasone, IV doxycycline, IV famotidine, guaifenesin, IV Zofran, potassium phosphate replacement, IV prochlorperazine, IVF. Principal Diagnosis Anaplasmosis liver Cyst Discharge Exam Physical exam: General: No acute distress, alert awake oriented x3 HEENT: PERRLA, EOMI, Heart: Regular S1-S2, no carotid bruit, no JVD, no lower extremity edema Lungs: Clear to auscultate, no wheeze or rales Abdomen: Soft nontender, no organomegaly Extremity: No cyanosis, no deformity, normal strength 5 out of 5 with upper and lower Neuro: No focal neurological deficit normal speech, normal visual field, Motor strength : normal both upper and lower extremity, sensation intact Psych: Alert awake oriented x3, normal affect Discharge Data Allergies Allergy/AdvReac Type Severity Reaction Status Date / Time No Known Allergies Allergy Unknown Verified 08/13/03 16:41 CAT GUT Allergy Mild Uncoded 08/03/03 15:33 Consultations 12/28/20 18:09 ED Decision to Admit Stat 12/30/20 10:00 Consult Gastroenterology Routine Ordered Studies 12/28/20 15:51 CT abd pelvis IV con only Stat Hospital Course (1) Anaplasmosis: -Patient presentedfrom home with reports of generalized weakness and illness -In the ED, Anaplasma smear positive -Labs consistent with Anaplasma infection w/ leukopenia, thrombocytopenia, elevated LFTs -continued with PO doxycycline , Feels like her own self today, no fever chills no weakness, Normal appetite, normal energy level, Stable to be discharged home today (2) Hepatic cyst: -CT ABD/pelvis shows multiple cystic hepatic lesions including a 13 cm lesion within the left hepatic lobe incidental finding , GI consult appreciated, in the setting of normal LFTs possible benign cyst versus secondary to Anaplasma infection. No intervention needed, recommends outpatient GI follow-up and repeat liver imaging in 6 months (3) Hypokalemia: (4) Hypophosphatemia: -Likely due to poor p.o. intake and GI loss with vomiting and diarrhea Replaced. GI symptoms has resolved , tolerating diet , no diarrhea diet advanced to solid -Has been tolerating well (5) Asthma: -No signs of acute exacerbation, continue home inhalers (6) DVT prophylaxis: -SCDs due to thrombocytopenia Disposition : Stable to be discharged home today Total Time Total Time Spent Total Time Spent (In Minutes): 35 minutes Discharge Plan Discharge Items Patient Disposition: Home - Self-Care Reason For Visit: ANAPLASMOSIS Discharge Diagnosis: Anaplasmosis liver Cyst Activity: Resume your previous activity Non-emergency contact: Primary Care Provider Call non-emergency contact if: you have any medication questions Follow-up/Referrals: Neri Ramirez CRNP [Nurse Practitioner] - (Follow up in 6 months ) Bryan Davis MD [Primary Care Provider] - (Date & Time 01/02/2021 1:40 PM Provider Asher Zurita MD Department Family [facility] ) Diet: Regular Addtl Attending Provider Instructions: Please take all medications as instructed on discharge list below. It is recommended that you follow-up with your primary care physician within 1-2 weeks of hospital discharge to ensure you are still doing well. Please call if you have any questions or problems. You can reach a [facility] hospitalist on duty at [facility] 24 hours a day by calling [phone] Addtl [employer] Provider Instructions: PLEASE TAKE PROBIOTICS ( OVER THE COUNTER ) WHILE TAKING ANTIBIOTICS TO PREVENT DIARRHEA /LOOSE STOOL gastroenterology follow up in 6 months to have repeat imaging CT or ultrasound of liver to assess liver cysts Pending Studies at Discharge: No Stand-Alone Forms: [facility] [employer], Smoking Cessation Medications and DC Order Prescriptions: New doxycycline hyclate 100 mg Capsule 100 mg PO BID 10 Days Qty: 20 RF: 0 Continued calcium carbonate-vitamin D3 [Calcium + D] 600 mg(1,500mg) -200 unit Tablet 2 tab PO DAILY RF: 0 albuterol sulfate 90 mcg/actuation Hfa Aerosol Inhaler 2 inh INHALATION QID PRN (Reason: Shortness Of Breath) RF: 0 fluticasone propionate 50 mcg/actuation spray,suspension 2 spray INTRANASAL DAILY RF: 0 Flovent HFA 110 mcg/actuation HFA aerosol inhaler 2 inh INHALATION BID RF: 0 Discontinued azithromycin 250 mg tablet 250 mg PO DAILY RF: 0 Discharge Orders: Discharge Order (Routine); Ordered 12/30/20 Ordered By: Joan Yusuf/Other Patient Handouts: ED Tick Facts Admission Data Admit Date/Time: 12/28/20 18:52 Attending Provider: Joan Murillo Admit Provider: Joan Murillo Primary Care Provider: Bryan Davis Other Providers: Joan Murillo ; Neri Ramirez ; Ana Castano ; Ashkan Gonsalez ; Bhakti Mcgarry ; Bob Gonzales ; Wilfrid Russell ; Eliseo Astudillo ; Andrea Laird ; Smitha Hughes ; Amanda Hatch ; Catherine Crocker ; Annie Mendoza ; Warren Mullen Other Interventions: Discharge Summary Assessment (RN) Last Done: 12/30/20 15:06
[2020-12-30 15:38] LABS: Calcium 8.5 mg/dl (8.5-10.1); Creatinine Clr Calc Pharmacy 68.7 ml/min; Est GFR (Non-African American) 88.8 ml/min; Phosphorus 1.7 mg/dl (2.5-4.9); Potassium 3.8 mmol/L (3.5-5.1)
[2020-12-30 15:39] LABS: Hematocrit (blood only) 37.5 % (37-47); Hemoglobin 12.8 g/dL (12.0-16.0); Mean Corpuscular Hemoglobin 29.5 pg (25-34); Mean Corpuscular Hgb Conc 34.1 g/dL (32-36); Mean Corpuscular Volume 86.4 fL (80-100); Platelet Count 54 K/uL (130-400); RDW Coefficient of Variation 14.1 % (11.5-14.5); RDW Standard Deviation 44.8 fL (36.4-46.3); Red Blood Count 4.34 M/uL (4.2-5.4)
== END 2020-12-30 16:22 | disposition home or self-care (01) | DRG 869 ==
LOC: ED 15:11 → 3W 18:52